=== PATIENT | male | born 1945 | race Caucasian/White ===

== ENCOUNTER → 2018-02-11 | Outpatient (CLI) | payer MEDICARE, OTHER ==
[~2018-02-11] MED LIST: ARMOUR THYROID60 MG PO; OMEPRAZOLE40 MG PO; PROSCAR5 MG PO; SUCRALFATE1 GM PO; TESTOPEL75 MG
--- NOTE | 2018-02-11 15:24 | Diagnostic Imaging Report ---
EXAM: Thyroid Ultrasound INDICATION: THYROID NODULE COMPARISON: None TECHNIQUE: Transverse and sagittal images were obtained of the thyroid gland. FINDINGS: Thyroid gland: Size: Right lobe 3.4 x 0.8 x 1.4 cm, Normal in size Left lobe 3.6 x 1.1 x 1.1 cm, Normal in size Isthmus 0.2 cm, Normal in size Appearance: Homogeneous echotexture without increased vascularity Masses/Nodules: Right lobe: Tiny, 0.2 cm anechoic lesion in the lower pole of the right thyroid lobe consistent with a cyst. TR2, Not Suspicious: No FNA. Left lobe: 1. 1.3 x 1.1 x 1.1 cm cm almost completely solid (2 pts) nodule in the lower pole with smooth margin (0 pts), [id number] (0 pts), isoechoic (1 pt), and macrocalcifications (1 pt). TR4b (1.0-1.5 cm), Moderately Suspicious: Follow at 1, 2, 3, 5 years. 2. 3. Spongiform nodule in the interpolar region measures 0.7 x 0.4 x 0.5 cm. TR2, Not Suspicious: No FNA. Parathyroid: No focal parathyroid masses. IMPRESSION: Mildly complex 1.3 cm nodule in the left thyroid lobe. TR4b (1.0-1.5 cm), Moderately Suspicious: Follow at 1, 2, 3, 5 years (next follow up in January 2019). Signed by: Dr. Norma Mackay M.D. on 02/11/2018 3:20 PM
== END ==
LOC: US 13:49
PROVIDERS: ATTEND Family Medicine
DX: E04.1 Nontoxic single thyroid nodule (principal)
CPT/HCPCS: 76536

== ENCOUNTER → 2019-01-28 | Outpatient (CLI) | payer MEDICARE, OTHER ==
[~2019-01-28] MED LIST changes: +IOPAMIDOL 370 MG/ML 200 ML INFUS..BTL INJ ONE; +SODIUM CHLORIDE 0.9% 50ML 50 ML ONE
[2019-01-28 08:31] LABS: BLOOD UREA NITROGEN 18 mg/dL (7-26); BUN/CREATININE RATIO 16 (6-25); EST GLOMERULAR FILTRATION RATE > 60 ML/MIN (60-)
--- NOTE | 2019-01-28 10:06 | Diagnostic Imaging Report ---
History: Mass left side of the neck Comparison studies: None Technique: Axial, coronal and sagittal images from the skull base to the thoracic inlet. Coronal and sagittal images reconstructed from the axial data. Intravenous contrast: 100 cc of Omnipaque 300. Dose modulation, iterative reconstruction, and/or weight based adjustment of the mA/kV was utilized to reduce the radiation dose to as low as reasonably achievable. Findings: Soft tissues: No abnormalities. Masses: None. No lesion is seen underlying the left skin marker. Lymph nodes: No radiographically significant adenopathy. Vessels: Arteries and veins are patent. Glands (thyroid, parotid and submandibular): Normal in size and symmetric. No masses. Orbits: No acute abnormalities. Bilateral cataract surgery changes. Paranasal sinuses: Mucosal thickening at the bilateral maxillary sinuses, nonspecific Temporal bones: No abnormalities. Skull base and facial bones: Intact. Cervical spine: Degenerative foraminal narrowing severe left at C3-4, severe left at C4-5, severe bilateral at C5-6, moderate bilateral at C6-7. Moderate degenerative canal stenosis at C5-6 and C6-7. IMPRESSION: 1. No sizable neck masses, specifically underlying the skin marker on the left side of the neck. 2. Nonspecific inflammatory changes of the maxillary sinuses. 3. Degenerative changes of the cervical spine as described above. Signed by: DR Willy Jack M.D. on 01/28/2019 10:03 AM
== END ==
LOC: CT 07:40
PROVIDERS: ATTEND Family Medicine
DX: R22.1 Localized swelling, mass and lump, neck (principal)
CPT/HCPCS: 36415; 70491; 82565; 84520; Q9967

== ENCOUNTER → 2019-11-11 | Outpatient (CLI) | payer MEDICARE, OTHER ==
[~2019-11-11] MED LIST changes: -IOPAMIDOL 370 MG/ML 200 ML INFUS..BTL INJ ONE; -SODIUM CHLORIDE 0.9% 50ML 50 ML ONE
--- NOTE | 2019-11-11 09:06 | Diagnostic Imaging Report ---
MRI of the right shoulder without contrast. History: Shoulder pain. Decreased range of motion. Arthralgia. Comparison: None Technique: Coronal PD FS, sagital PD FS, and axial PD and PD FS. Findings: Rotator cuff: Rotator cuff tendinosis with midsubstance degeneration and mild articular sided partial tear involving the anterior fibers of the supraspinatus tendon at the humeral insertion site. Additionally, there is infraspinatus and subscapularis tendinosis. The teres minor tendon is intact. Osseous acromion complex: Type II acromion with mild lateral downsloping. Moderate degenerative arthrosis at the acromioclavicular joint with undersurface spurring and narrowing of the supraspinatus tendon outlet. Mild subacromial/subdeltoid bursitis. Glenohumeral joint: Circumferential degenerative type tearing of the labrum. Advanced degenerative arthrosis in the glenohumeral joint with regions of full-thickness articular cartilage loss, subchondral cystic change, bone marrow edema and peripheral osteophytosis. Glenohumeral joint effusion and mild synovitis. Biceps tendon: Intra-articular biceps tendinosis with fraying of the biceps anchor. Other findings: Negative for muscle denervation or osseous fracture. 1 cm fluid signal intensity superficial mass at the posterior superior shoulder likely due to a small epidermal cyst or sebaceous cyst best seen on axial series 2 image 1 through 3. 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 Rotator cuff tendinosis with midsubstance degeneration and mild articular sided partial tear involving the anterior fibers of the supraspinatus tendon at the humeral insertion site. Moderate degenerative arthrosis at the acromioclavicular joint with undersurface spurring and narrowing of the supraspinatus tendon outlet. Mild subacromial/subdeltoid bursitis Signed by: Dr. Yg Portillo M.D. on 11/11/2019 9:03 AM
--- NOTE | 2019-11-11 09:30 | Diagnostic Imaging Report ---
Right knee MRI without contrast. History: Knee pain. Arthralgia. Medial pain. Decreased range of motion. Comparison: None. Technique: Multiplanar multi-sequence MRI of the knee without contrast. Findings: Medial compartment: Complex tear involving the posterior horn and body segment of the medial meniscus. Regions of full-thickness articular cartilage loss in the medial compartment with underlying bone marrow edema. Peripheral marginal osteophytes. The medial collateral ligament complex is intact. Lateral compartment: Obliquely oriented tear involving the posterior horn and body segments of the lateral meniscus. Articular cartilage fraying and deep fissuring in the lateral compartment with mild underlying bone marrow edema. Peripheral marginal osteophytes. The lateral collateral ligament complex is intact Intercondylar notch: The ACL and PCL are intact. Patellofemoral compartment: Articular cartilage fraying and fissuring in the patellofemoral compartment. Extensor mechanism: The quadriceps and patellar tendons are normal. Other findings: There is a joint effusion and synovitis. There is no acute fracture, subluxation or avascular necrosis. Thickened elongated medial plica best seen on axial image 15. IMPRESSION: Complex meniscus tear with degenerative arthrosis in the medial compartment of the knee. Obliquely oriented lateral meniscus tear with degenerative arthrosis in the lateral compartment of the knee. Articular cartilage fraying and fissuring in the patellofemoral compartment. Joint effusion, synovitis and thickened elongated medial plica. Signed by: Dr. Yg Portillo M.D. on 11/11/2019 9:27 AM
--- NOTE | 2019-11-11 10:43 | Diagnostic Imaging Report ---
MRI of the right foot without contrast. History: Foot pain. Arthralgia. Pain worse with running. Decreased range of motion.. Technique: Multiplanar multisequence MRI of the foot without contrast Comparison: None Findings: No acute fracture, subluxation or avascular necrosis. Advanced degenerative arthrosis most pronounced in the mid foot involving the proximal second through fourth metatarsals and the adjacent cuneiform bones. Regions of full-thickness articular cartilage loss, subchondral cystic change, peripheral osteophytosis and bone marrow edema with adjacent soft tissue edema. No ligamentous or tendon tear. The visualized muscles are normal in size, signal intensity and morphology. The visualized neurovascular bundles are intact. Impression: Advanced degenerative arthrosis most pronounced in the mid foot involving the proximal second through fourth metatarsals and the adjacent cuneiform bones. Regions of full-thickness articular cartilage loss, subchondral cystic change, peripheral osteophytosis and bone marrow edema with adjacent soft tissue edema. Signed by: Dr. Yg Portillo M.D. on 11/11/2019 10:40 AM
== END ==
LOC: MRI 07:38
PROVIDERS: ATTEND Family Medicine
DX: M25.511 Pain in right shoulder (principal); M25.561 Pain in right knee; M25.571 Pain in right ankle and joints of right foot

== ENCOUNTER → 2020-01-04 | Outpatient (CLI) | payer MEDICARE, OTHER ==
[~2020-01-04] MED LIST changes: +IOPAMIDOL 370 MG/ML 200 ML INFUS..BTL INJ ONE; +METOPROLOL TARTRATE INJ 1 MG/ML VIAL ONE; +NITROGLYCERIN 0.4 MG SUBL ONE; +SODIUM CHLORIDE 0.9% 100 ML ONE
[2020-01-04 08:52] LABS: CREATININE, SERUM 1.18 mg/dL (0.72-1.25)
--- NOTE | 2020-01-04 14:20 | Diagnostic Imaging Report ---
EXAM: CALCIUM SCORE AND CORONARY CTA INDICATION: ^[id number] ^[id number] ^CAD COMPARISON: None. TECHNIQUE: Multi-detector CT technology was employed (64 MD[facility]). Minimal slice thickness was performed following the intravenous administration of contrast material. The patient was premedicated with 5 mg i.v. metoprolol and 0.4 mg sublingual nitroglycerin for heart rate control and coronary dilation, respectively. IV CONTRAST: 100 mL of Isovue-370 ORAL CONTRAST: None COMPLICATIONS: None RADIATION DOSE: Total DLP: 1828 mGy*cm Estimated effective dose: (DLP x 0.015 x size factor) mSv CTDIvol has been reviewed. It is below the limits set by the Radiation Protocol Committee (RPC). For optimization of anatomic evaluation, multiplanar reconstruction, maximum intensity projections, and advanced 3-D off-line postprocessing were performed on a dedicated stand-alone workstation under the direct supervision of the interpreting physician. QUALITY: Very good. Mild to moderate motion artifact at the mid RCA at the AV groove. FINDINGS: CALCIUM SCORE: The observed Agatston Calcium Score of 30.7 is at percentile less than 10% for subjects of the same age and gender who are free of clinical cardiovascular disease and treated diabetes. The Agatston score for each vessel is as follows: LM: 0 LAD: 30.7 LCx: 0 RCA: 0 DISTRIBUTION OF THE CALCIFIED PLAQUES: Mild scattered calcified plaque throughout the proximal and mid LAD. CORONARY ANATOMY: There is normal origin of the coronary arteries. Left Main Coronary Artery: The left main is normal sized vessel that bifurcates into the LAD and circumflex. Mild scattered calcified and noncalcified plaque throughout the proximal and mid LAD segments resulting in minimal stenosis (1-24%). Otherwise, no significant atherosclerotic changes or stenotic disease. Left Anterior Descending Coronary Artery: The LAD is a normal size vessel that wraps around the apex. It gives rise to 2 acute diagonal branches. There is no evidence of atherosclerotic changes or stenotic disease. Left Circumflex Coronary Artery: The LCX is a normal size vessel, which is non-dominant. It gives rise to 1 obtuse marginal branches. There is no evidence of atherosclerotic changes or stenotic disease. Right Coronary Artery: The RCA is a normal size vessel, which is dominant. It gives rise to an AV chong branch, and 2 acute marginal branches. In its distal segment it bifurcates into the PDA and PV branch. Incidental separate ostium of the conus branch. There is no evidence of atherosclerotic changes or stenotic disease. CARDIAC MORPHOLOGY AND FUNCTION: There is moderate dilation of the right ventricle and right atrium with dilated IVC and flattening of the interventricular septum consistent with increased right-sided pressures. Small (4 mm) diverticulum within the right anterior wall of the left atrium. There are 2 right and 2 left pulmonary veins draining into the left atrium. No CT findings to suggest an normal pulmonary venous return. The interventricular and interatrial septum appear intact on limited evaluation, however, small defects cannot be excluded on this exam. There is normal resting global left ventricular systolic function. LVEF: 61.6%, LV end diastolic volume: 144 cc LV end systolic volume: 55 cc LV stroke volume: 88.7 cc LIMITED CHEST: Limited views of the visualized chest show no abnormality within chest wall and mediastinum. No mediastinal lymphadenopathy. Mild enlargement of the main pulmonary artery, measuring 3.1 cm. The visualized lungs are clear. The visualized portions of the ascending and descending thoracic aorta are of normal size. LIMITED ABDOMEN: Limited images of the upper abdomen reveal no abnormalities of the visualized organs. BONES: No acute osseous abnormalities. IMPRESSION: 1. Total Agatston Calcium Score: 30.7 that corresponds to percentile less than 10%, representing mild plaque burden. 2. Normal coronary anatomy with incidental separate ostium of the conus artery arising directly from the right sinus of Valsalva adjacent to the origin of the RCA. 3. Scattered calcified and noncalcified atherosclerotic changes throughout the proximal and mid LAD resulting in minimal stenosis (1-24%). Otherwise, no evidence of atherosclerotic changes or stenotic disease in the remaining coronary arteries. CAD-YOKASTA: 1 Reference: [email or web address] 4. CT findings consistent with pulmonary hypertension of uncertain etiology. Correlate with echocardiogram. Signed by: Dr. Nadine Reynolds M.D. on 01/04/2020 2:17 PM
== END ==
LOC: CT 07:55
PROVIDERS: ATTEND Internal Medicine Cardiovascular Disease
DX: I25.10 Atherosclerotic heart disease of native coronary artery without angina pectoris (principal)
CPT/HCPCS: 36415; 75574; 82565; 84520; J7050; Q9967